=== PATIENT | female | born 1950 | race Caucasian/White ===

== ENCOUNTER 2017-01-29 07:47 | Emergency (ER) | payer OTHER ==
[~2017-01-29] VITALS: Ht 165.1 cm; Wt 50.0 kg
[2017-01-29 08:05] VITALS: Ht 165.1 cm; Wt 50.0 kg
[2017-01-29] MEDS ORDERED: MoRPHine SULFATE 4 MG/ML 1 ML CARP\\VIAL IV STA (08:12)
[2017-01-29] MEDS ORDERED: ONDANSETRON INJ 2 MG/ML 2 ML VIAL IV STA ×2 (08:12→09:06)
--- NOTE | 2017-01-29 08:36 | DIAGNOSTIC IMAGING REPORT ---
RIGHT WRIST 2 VIEWS CLINICAL HISTORY: Right wrist injury. FINDINGS: AP and crosstable lateral views of the right wrist are obtained. No prior studies are available for comparison at the time of dictation. The skeletal structures are osteopenic. There is an impacted and comminuted fracture of the distal radial metaphysis with intra-articular extension. There is apex volar angulation and small posteriorly distracted fragments. A tiny avulsion fracture is suggested from the ulnar styloid. The radiocarpal articulation appears maintained. Significant overlying soft tissue edema is noted. IMPRESSION: 1. There is an impacted, comminuted, and angulated fracture of the distal radial metaphysis with intraarticular extension as above. 2. Question a tiny avulsion fracture of the ulnar styloid. Electronically signed by: Magnus Johansen M.D. 01/29/2017 8:35 AM Dictated Date/Time: 01/29/2017 8:33 AM
[2017-01-29] MEDS ORDERED: CLON0.5T3 PO (08:44)
[2017-01-29] MEDS ORDERED: PROG1CAP PO (08:44)
[2017-01-29] MEDS ORDERED: ESTR0.5T3 PO (08:44)
[2017-01-29] MEDS ORDERED: MoRPHine SULFATE 2 MG/ML CARP IV PRN (09:15)
[2017-01-29] MEDS ORDERED: XYLOCAINE 1%/SOD BICARB 20 ML VIAL INFIL ONE (09:30)
[2017-01-29] MEDS ORDERED: HYDR-5688 PO (11:07)
--- NOTE | 2017-01-29 12:14 | Medical Consult ---
Consultation Note Date of Service Jan 29, 2017. Consultation Note This is a 66-year-old seen at the request of the emergency room physician. She had fallen down the stairs at her daughter's home and fell onto her right outstretched upper extremity. She had obvious deformity and pain. She had inability to use the right wrist and hand. She then presented by private transport to [facility]. She was seen and evaluated with emergency department physician ambulance assistant, x-rays were obtained and a referral was made for orthopedic consultation. Patient had sustained no other injuries. She had no loss consciousness. No head or neck trauma. Past medical history: Anxiety Past surgical history: Noncontributory Allergies: No known drug allergies Medications: Klonopin, estradiol, Tylenol Social history: She denies tobacco use, alcohol use, drug use. 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 She is and lives with her spouse in [place], [place]. Physical exam: This is a well-nourished and hydrated 66-year-old female who's in the emergency department with her present. She is in no acute distress. She is alert and oriented 3. She has an obvious deformity of her right upper extremity. She has an ice pack and a pillow right upper extremity. Skin is warm dry and intact. No abrasions , rashes or lacerations. She has an obvious dinner fork deformity of her right upper extremity. Radial, ulnar, median and axillary nerve sensory and motor function are intact. She has limited active and passive range of motion of the right wrist due to pain and guarding. Radiographs: She has a displaced and dorsally angulated right distal radius fracture with apparent extension into the intra-articular aspect of the radial carpal joint. Osteopenia is evident. Impression: Right displaced, dorsally angulated, 3-part Colles' fracture with possible intra-articular extension status post fall on right upper extremity. Recommendations: Closed reduction and plaster sugar tong splint application to the right upper extremity. Hematoma block right upper extremity. Sling, ice, anti-inflammatories for comfort. Follow-up with orthopedic surgery in [facility] for likely volar plating stabilized the distal radius fracture. Follow up with Dr. Almeida at [facility] if she chooses to have further care and management here in [place]. Procedure note: After obtaining verbal consent from the patient and her patient had her right distal radius sterilely prepped with Betadine and alcohol. Approximately 12 mL of 1% lidocaine plain was injected in a hematoma block fashion. She tolerated the hematoma block without difficulty. Next the right upper extremities and placed into fingertrap traction with approximately 14 pounds of counter balance weight suspended from the right upper arm. Using ligamentotaxis and a gentle reduction maneuver the right distal radius was then reduced into near anatomic position. Next a well-padded sugar tong plaster splint was applied to the right upper extremity with 90-90 position and gentle molding performed of the splint. Splint was overwrapped with 4 inch Edgar wraps. Final postreduction radiographs obtained both in AP and lateral projections. Adequate near-anatomic reduction was achieved. Patient's fingers were removed from the trap traction. Radial pulses noted to be 2 out of 4. Capillary refill at the fingertips less than 2 seconds. Counter balance is removed from the right upper shoulder. Patient tolerated the procedure well.
--- NOTE | 2017-01-29 12:16 | DIAGNOSTIC IMAGING REPORT ---
RIGHT WRIST 2 VIEWS CLINICAL HISTORY: Wrist fracture status post external fixation. FINDINGS: AP and crosstable lateral portable views of the right wrist are compared to study performed on the same day 01/29/2017. The examination is performed through a cast, obscuring fine bony detail. The skeletal structures are osteopenic. Again seen is an impacted and comminuted fracture of the distal radial metaphysis with intra-articular extension. There has been significant improvement in alignment status post external fixation with approximately 3 mm of persistent lateral distraction of the distal fragments. A tiny avulsion fracture of the ulnar styloid is again suggested. The radiocarpal articulation appears maintained. Overlying soft tissue edema is noted. IMPRESSION: 1. Significant improvement in alignment of an impacted distal radial fracture as compared to previous. 2. Suspect a tiny avulsion fracture of the ulnar styloid. Electronically signed by: Magnus Johansen M.D. 01/29/2017 12:15 PM Dictated Date/Time: 01/29/2017 12:13 PM
[2017-01-29 12:37] VITALS: BP 122/59; PULSE 54; TEMP 36.4; O2SAT 99
--- NOTE | 2017-01-29 17:23 | EMERGENCY ROOM VISIT NOTE ---
ED Visit Note First contact with patient: 08:04 CHIEF COMPLAINT: Right wrist injury History of present illness: This 66-year-old white female patient complains of moderate constant right she was walking down the stairs in her son's home and slipped on the last step. She fell onto an outstretched arm. There was immediate onset of wrist pain. There is an obvious deformity. The pain is worse with any movement of the wrist. No laceration, no numbness or weakness. No other injury. The fall was not associated with dizziness or fainting. There were no palpitations, no chest pain, no difficulty breathing, no headache , no lightheadedness or weakness. Pain is 8/10. Her accompanies her today. They are supposed to go back to [facility] in 6 days. No prior history of significant wrist injury. No treatment yet. REVIEW OF SYSTEM: HEENT: No dizziness, visual problems, hearing loss, or tinnitus. There is no difficulty swallowing and no oral lesions are present. CARDIOVASCULAR: No chest pain, palpitations, shortness of breath or peripheral edema. GASTROINTESTINAL: No diarrhea, constipation, nausea, vomiting, or abdominal pain. GENITOURINARY: No dysuria, frequency, urgency or nocturia. NEUROLOGIC: No weakness, muscle tenderness, epilepsy or history of neurological problems. MUSCULOSKELETAL: No history of joint tenderness/swelling. No history of arthritis or arthralgias. SKIN: No rashes or lesions. ENDOCRINE: No history of diabetes, thyroid disorders, or abnormal hair growth. PMH: Supplemental sheet was reviewed. Previous surgeries: None Medical history: Benign Current medications: Filed in patient's chart Allergies: NKDA SOCIAL HISTORY: Patient lives at home with her and [place]. 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 No tobacco use, no EtOH use. PHYSICAL EXAM: Vital Signs: Afebrile. General: Well-developed, well-nourished, elderly white female, in no acute distress. Obvious discomfort. They are sitting on a bed. MENTAL STATUS: Alert and oriented. Skin: Warm and dry with good turgor. No rashes or lesions. Developing ecchymosis and significant edema present at the right wrist. No erythema. The patient is not diaphoretic. No abrasions. Musculoskeletal: She has an obvious deformity of the right wrist. There is tenderness over the distal radius with moderate swelling. Range of motion is Limited secondary to pain. Intact motor function to the fingers. No pain with palpation over the metacarpal heads or digits. No discomfort with palpation over the proximal forearm, radial head, or elbow. Neurologic: The hand is warm and well perfused and the fingers have normal sensation. Median, radial, and ulnar nerve functions are clearly intact. EMERGENCY DEPARTMENT COURSE: Radiographic images obtained today of the wrist show a comminuted impacted distal radius fracture with intra-articular extension. Questionable avulsion fracture from the ulnar styloid. This was read by radiology. DIAGNOSIS: Right wrist distal radius fracture, displaced with intra-articular extension DISCHARGE INSTRUCTIONS & TREATMENT: The patient was educated regarding today's findings. Conservative care measures were discussed. IV was established. Patient was given morphine 4 mg IV and Zofran 4 mg IV. Pain continued. She was given an additional morphine 2 mg IV and Zofran 4 mg IV. X-rays were obtained. Due to the displaced fracture, Dr. Almeida was consulted. He did come to the ED and reduce the wrist. Please see his dictation for final management. She will follow-up in [place] with her orthopedist for definitive surgical intervention. She was placed in a well-padded sugar tong splint after reduction. Ice and elevate the wrist intermittently to reduce pain and swelling. Ibuprofen, 600mg and Tylenol 1 g every 6 hours if needed for mild pain. Prescription was given for [place] 5 mg to be used every 6 hours as needed for more severe pain. Driving precautions were given. Gentle finger motion daily. Cast care handout was provided. Current/Historical Medications Scheduled Clonazepam (Klonopin), 0.5 MG PO DAILY Estradiol (Estradiol), 1 TAB PO DAILY Progesterone Micronized (Progesterone), Unknown Dose PO DAILY Scheduled PRN Hydrocodone/Acetaminophen 5MG/325MG ([place] 5MG/325MG), 1-2 TABLET PO Q6 PRN for Pain Allergies Coded Allergies: No Known Allergies (Unverified , 01/29/17) Vital Signs Date Time Temp Pulse Resp B/P (MAP) Pulse Ox O2 Delivery O2 Flow Rate FiO2 01/29/17 12:37 36.4 54 16 122/59 99 01/29/17 09:25 54 16 107/65 99 Room Air 01/29/17 08:05 66 20 97/54 99 Room Air Medications Administered Medications (Trade) Dose Ordered Sig/Rosanna Route Start Time Stop Time Status Last Admin Dose Admin Morphine Sulfate (MoRPHine SULFATE INJ) 4 mg NOW STAT IV 01/29/17 08:12 01/29/17 08:15 DC 01/29/17 08:27 4 MG Ondansetron HCl (Zofran Inj) 4 mg NOW STAT IV 01/29/17 08:12 01/29/17 08:15 DC 01/29/17 08:27 4 MG Morphine Sulfate (MoRPHine SULFATE INJ) 2 mg ONE PRN IV 01/29/17 09:15 01/29/17 13:28 DC 01/29/17 09:22 2 MG Ondansetron HCl (Zofran Inj) 4 mg NOW STAT IV 01/29/17 09:06 01/29/17 09:08 DC 01/29/17 09:21 4 MG Departure Information Impression Primary Impression: Distal radius fracture, right Dispostion Home / Self-Care Condition GOOD Prescriptions Hydrocodone/Acetaminophen 5MG/325MG ([place] 5MG/325MG) Tab 1-2 TABLET PO Q6 Y for Pain, #20 TAB For Initial Treatment Prov: Jose Garcia,P.A. 01/29/17 Forms CARE OF CASTS, WORK / SCHOOL INSTRUCTIONS, HOME CARE DOCUMENTATION FORM, SPECIAL NARCOTICS INSTRUCTIONS, TYLENOL USE, IMPORTANT VISIT INFORMATION Patient Instructions My [facility] Additional Instructions Keep the splint on and dry at all times Use a sling for comfort if needed Ice and elevate frequently to reduce pain and swelling [place] one to 2 tablets every 6 hours as needed for severe pain Tylenol every 6 hours as needed for mild pain See your orthopedist when you return to [place] Perform gentle finger motion frequently to reduce swelling
== END 2017-01-29 12:39 | disposition home or self-care (01) ==
LOC: C.EDB 07:49 → C.EDA 12:39
DX: S52.571A Other intraarticular fracture of lower end of right radius, initial encounter for closed fracture (principal); F41.9 Anxiety disorder, unspecified; Z79.899 Other long term (current) drug therapy; W10.9XXA Fall (on) (from) unspecified stairs and steps, initial encounter